=== PATIENT | female | born 1955 | race Hispanic/Latino ===

== ENCOUNTER → 2021-11-02 | Outpatient (CLI) | payer OTHER ==
[~2021-11-02] VITALS: Ht 160 cm; Wt 75.2 kg
[~2021-11-02] MED LIST: 0.9%NACL 1000ML 1,000 ML IV ONE; AEC81 PO; AMLO-257 PO; ATOR20TA65 PO; CARV6.25 PO; CEFAZOLIN SODIUM 1 GM VIAL ONE; CILO100T PO; CITA-107 PO; CLOP75TA32 PO; FERR-82 PO; LEVO100C4 PO; LINA145C PO; LOSA100T58 PO; MV-M1TAB20 PO; ZINC220T4 PO
[2021-11-02 12:55] LABS: BASOPHILS % (AUTO) 0.5 % (0.0-5.0); HEMATOCRIT 37.4 % (36-48); LYMPHOCYTES % (AUTO) 21.2 % (21.0-51.0); MEAN CORPUSCULAR HEMOGLOBIN 28.4 pg (27.0-33.0); MEAN CORPUSCULAR HGB CONC 31.8 g/dL (32.0-36.0); MEAN CORPUSCULAR VOLUME 89.3 fL (79-99); MONOCYTES % (AUTO) 7.2 % (3.0-13.0); NEUTROPHILS % (AUTO) 69.7 % (40.0-77.0); PLATELET COUNT (AUTO) 307 K/uL (130-400); RED BLOOD CELL COUNT(AUTO) 4.19 MIL/uL (4.00-5.50); WHITE BLOOD COUNT (AUTO) 7.8 K/uL (4.8-10.8)
[2021-11-02 13:09] LABS: BILIRUBIN,TOTAL 0.3 mg/dL (0.2-1.0); CREATININE 1.5 mg/dL (0.5-1.5); POTASSIUM 4.7 mmol/L (3.5-5.1); TOTAL PROTEIN, SERUM 7.6 g/dL (6.0-8.3)
[2021-11-02 13:19] LABS: HEMOGLOBIN A1C 6.8 % (4.0-6.0)
[2021-11-02 13:31] LABS: B-TYPE NATRIURETIC PEPTIDE 199 pg/mL (0-100)
[2021-11-02 13:41] LABS: INR 1.03 (0.85-1.15); PROTHROMBIN TIME 11.2 SEC (9.6-11.6)
[2021-11-02 13:43] LABS: PARTIAL THROMBOPLASTIN TIME 30.5 SEC (26.3-35.5)
[2021-11-06 07:30] VITALS: BP 172/76
[2021-11-06 07:42] VITALS: BP 172/76
[2021-11-06 07:54] LABS: CHOLESTEROL 157 mg/dL (<200); HDL CHOLESTEROL 85 mg/dL (35-85); LDL DIRECT 62 mg/dL (0-99); TRIGLYCERIDES 60 mg/dL (30-200)
== END | disposition home or self-care (01) ==
LOC: DAH 10:00 → EDSTATUS 11-06 08:30
PROVIDERS: ATTEND Thoracic Surgery (Cardiothoracic Vascular Surgery)
DX: Z01.818 Encounter for other preprocedural examination (principal); I65.22 Occlusion and stenosis of left carotid artery; Z95.0 Presence of cardiac pacemaker; Z20.822 Contact with and (suspected) exposure to COVID-19
CPT/HCPCS: 36415; 71045; 80053; 80061; 82948; 83036; 83880; 85025; 85610; 85730; 86850 ×2; 86900; 86901; 86923; 87635; 93005; A6260